=== PATIENT | female | born 1940 | race Caucasian/White ===

== ENCOUNTER 2019-08-19 21:30 | Observation (INO) | payer MEDICARE, BC, SELFPAY ==
[2019-08-19] VITALS (11 sets, daily range): BP systolic 95–168; BP diastolic 47–86; PULSE 85–89; RESP 13–24; TEMP 36.6; O2SAT 92–98
--- NOTE | 2019-08-19 21:35 | ED.OVERDOSE ---
HPI - Overdose General Chief Complaint: Overdose Stated Complaint: accidental OD Time Seen by Provider: 08/19/19 21:35 Source: family (spouse), EMS and RN notes reviewed Mode of arrival: EMS Limitations: clinical condition History of Present Illness HPI Narrative: Pt is an 79 y/o female who presents to the ED, via EMS, with c/o an overdose which occurred prior to arrival. EMS reports the pt lives at home with her , but she takes her medication of her own. The reports the pt has overdosed on her medication in the past accidentally. However, he is unaware of how much the pt has overdosed. EMS reports the pt was in her motorized chair when she fell to the ground. The pt called EMS. Upon arrival, EMS administered Narcan to the pt which helped the pt become more alert and oriented. However, the pt seems drowsy in the ED bed currently. The pt seemed to have overdosed on Oxycontin medication. The pt denies any chest pain or chest pressure currently in the ED bed. A complete HPI is limited due to the pt's clinical condition. MD complaint: accidental overdose Onset (ago): unknown Intent: other (unintentional) How Overdose Was Discovered: other ( saw pt not at baseline) Context: Accidental Overdose: medication error Associated symptoms: other (none) Related Data Home Medications Medication Instructions Recorded Confirmed diclofenac sodium 2 g TOPICAL QID PRN 06/21/19 08/20/19 estradiol 1 mg PO DAILY 06/21/19 08/20/19 fluoxetine 20 mg PO BID 06/21/19 08/20/19 ibuprofen 800 mg PO TID PRN 06/21/19 08/20/19 leflunomide 20 mg PO DAILY 06/21/19 08/20/19 pantoprazole 20 mg PO QAM 06/21/19 08/20/19 quetiapine 400 mg PO HS 06/21/19 08/20/19 ropinirole 1 mg PO HS 06/21/19 08/20/19 trazodone 100 mg PO HS 06/21/19 08/20/19 albuterol sulfate [Ventolin HFA] 2 puff INHALATION Q4H PRN 08/20/19 08/20/19 furosemide 20 mg PO DAILY 08/20/19 08/20/19 lorazepam 1 mg PO TID PRN 08/20/19 08/20/19 nystatin 1 ml PO QID 08/20/19 08/20/19 prednisone 10 mg PO BID 08/20/19 08/20/19 ramelteon 8 mg PO HS 08/20/19 08/20/19 rivastigmine tartrate 3 mg PO QID 08/20/19 08/20/19 tizanidine 4 mg PO Q8H PRN 08/20/19 08/20/19 zolpidem 5 mg PO QPM 08/20/19 08/20/19 Allergies Allergy/AdvReac Type Severity Reaction Status Date / Time vancomycin Allergy Unknown Unknown Verified 08/01/19 16:48 adhesive tape Allergy Rash Verified 06/21/19 16:18 Review of Systems Review of Systems: Narrative: A complete ROS is limited due to the pt's clinical condition. All systems reviewed & are unremarkable except as noted in HPI and below Constitutional: Constitutional: Reports other (overdose) Cardiovascular: Cardiovascular: Denies chest pain and Denies other (chest pressure) [facility] Past Medical History Medical History Anemia of chronic disease Anxiety Chronic narcotic dependence Chronic pain syndrome COPD (chronic obstructive pulmonary disease) Depression Left elbow fracture with orif 2018 MCL deficiency, knee Rheumatoid arthritis Uterine cancer Surgical History Surgical History H/O rotator cuff surgery rt H/O: hysterectomy History of back surgery History of colon surgery Family History Family History Father Cancer Lung cancer Sibling Cancer Lung cancer Neurofibromatosis Mother Arthritis Parkinsons Aneurysm Brain aneurysm Social History Social History Social History: Patient lives at home with her . She does have 1 son and 1 daughter. She is a full code. She reports her is her POA. She does not currently smoke. No alcohol use. Smoking packs per day: 0.5 Smoking cigarettes per day: 10.0 Years smoked: 60 Smoking pack-years: 30.00 Smoking status: Former smok
--- NOTE | 2019-08-19 21:46 | ECG_ITS ---
Measurements Intervals [place] Rate: 83 P: 7 TN: 139 QRS: 31 QRSD: 138 T: 36 QT: 409 QTc: 481 Interpretive Statements SINUS RHYTHM FREQUENT ATRIAL PREMATURE COMPLEXES RIGHT BUNDLE BRANCH BLOCK BASELINE ARTIFACT- I, II, III, AVL, AVF ABNORMAL ECG Electronically Signed On 08-20-2019 6:55:52 [employer] by Christian Castro D.O.
[2019-08-19] MEDS: NALOXONE HCL 0.4 MG/ML VIAL IV PUSH (21:59)
[2019-08-19 22:37] LABS: Basophils Absolute Auto 0.1 K/mm3 (0.0-0.1); Basophils Percent Auto 0.8 % (0.2-1.2); Eosinophils Absolute Auto 0.3 K/mm3 (0-0.3); Eosinophils Percent Auto 2.9 % (0-4.4); Hematocrit 33.2 % (37.0-47.0); Hemoglobin 10.6 g/dL (12.0-15.0); Immature Granulocyte Absolute 0.12 K/mm3 (0.00-0.031); Lymphocytes Absolute Auto 1.77 K/mm3 (0.9-3.2); Lymphocytes Percent Auto 15.4 % (18.3-44.2); Mean Corpuscular HGB Conc 31.9 g/dl (32-36); Mean Corpuscular Volume 94.1 fl (80-100); Mean Platelet Volume 12.9 fl (7.4-10.4); Monocytes Percent Auto 8.3 % (2.6-8.5); Neutrophils Absolute Auto 8.2 K/mm3 (1.3-6.7); Neutrophils Percent Auto 71.6 % (45.5-73.1); Platelet Count Result 200 k/mm3 (150-375); Red Blood Count 3.53 M/mm3 (4.2-5.4); Red Cell Distribution Width 17.6 % (11.5-14.5); White Blood Count 11.5 K/mm3 (4.5-10.0)
[2019-08-19 22:47] LABS: Add Urine Microscopic? NO; Appearance Urine Clear (Clear); Bilirubin Urine Negative (Negative); Blood Urine Negative (Negative); Color Urine Yellow (Yellow); Glucose Urine UA Negative (Negative); Ketones Urine Negative (Negative); Leukocyte Esterase Ur Negative LEU/UL (Negative); Nitrate Urine Negative (Negative); Protein Urine Negative (Negative); Specific Grav Ur 1.017 (1.001-1.035); Urobilinogen Urine Negative mg/dL (<2.0)
[2019-08-19 22:49] LABS: Alanine Aminotransferase 11 U/L (4-35); Albumin Level 4.1 g/dL (3.5-5.1); Alkaline Phosphatase 90 U/L (38-126); Aspartate Amino Transferase 16 U/L (14-36); Bilirubin,Total 0.2 mg/dL (0.2-1.3); Blood Urea Nitrogen 16 mg/dL (7-17); Calcium 9.5 mg/dL (8.4-10.2); Carbon Dioxide 23 mmol/L (22-30); Chloride 103 mmol/L (98-107); Estimated Glomerular Filt Rate > 60; Glucose 106 mg/dL (65-105); Potassium 3.5 mmol/L (3.4-5.0); Sodium 138 mmol/L (137-145)
[2019-08-19 22:51] LABS: Acetaminophen < 10 ug/mL (10-30); Ethanol < 10 mg/dL (<10); Salicylate < 1.0 mg/dL (2-20)
[2019-08-20] VITALS (23 sets, daily range): BP systolic 86–164; BP diastolic 44–77; PULSE 64–84; RESP 10–23; TEMP 36.4–37.1; O2SAT 92–99; BMI 25.9
[2019-08-20 00:03] LABS: Amphetamine Screen Urine Negative (Negative); Barbiturate Screen Urine Negative (Negative); Benzodiazepines Screen Urine Negative (Negative); Cannabinoid Screen Urine Negative (Negative); Cocaine Screen Urine Negative (Negative); Methadone Screen Urine Negative (Negative); Opiate Screen Urine Positive (Negative); Phencyclidine Screen Urine Negative (Negative)
--- NOTE | 2019-08-20 00:06 | PC.NURSE ---
At 0006 this nurse called Poison Control at and spoke with LEI Pulido and informed her of the medications the patient ingested. Tess stated to give IV fluids and monitor patient closely. Tess stated to not give Rumazicon but may give some narcan. This nurse informed EDP. IV fluids started on patient.
[2019-08-20] MEDS: SODIUM CHLORIDE 0.9% IV 1,000 ML 999 ML IV CONT ×2 (00:18→02:00)
[2019-08-20 01:00] LABS: Alveolar/Arterial O2 Gradient 19.8 mmHg; Carboxyhemoglobin 1.9 % THb (0-2.0); Device ROOM AIR; Fractional Inspired Oxygen 21 %; HCO3 ABG 25.9 mEq/l (22.0-26.0); Methemoglobin ABG 0.3 %THb (0-1.5); Modified Allen's Test Pass; Oxygen Content ABG 10.9 %vol (16.0-22.0); Oxygen Saturation ABG 93.6 % (95.0-100.0); Oxyhemoglobin 89.1 % THb (90.0-100.0); PCO2 ABG 48.3 mmHg (35.0-45.0); PO2 ABG 72.1 mmHg (80.0-100.0); PO2 FiO2 Ratio Arterial Blood 3.43 %; Reduced Hemoglobin 8.7 %THb (0-5.0); Site Drawn LEFT RADIAL; Total Hemoglobin 8.6 g/dL (12.0-18.0); pH ABG 7.347 (7.350-7.450)
--- NOTE | 2019-08-20 03:16 | ADMGEN ---
This patient, Jessica Zamudio, was admitted to Intensive Care Unit-5. Patient/family oriented to hospital policies and general routines including ID bracelet, bed and alarms, visiting hours, pain management, procedures, bathroom and other care routines, personal items, smoking policy, room service/diet, and visiting hours. Valuables list has been completed. Information on how to activate the Rapid Response Team has been discussed. Patient/Family are encouraged to report perceived risks to care and to ask questions if they do not understand what they are told or what they should do.
[2019-08-20] MEDS: SODIUM CHLORIDE 0.9% IV 1,000 ML 125 ML IV CONT ×3 (04:01→20:56)
--- NOTE | 2019-08-20 08:20 | PM.IMHP ---
H&P: HPI History of Present Illness Chief complaint: ACCIDENTAL DRUG OVERDOSE CELLULITIS Narrative: Date and Time of Service of History & Physical: August 20, 2019 at 7:50 a.m.. Date and Time of Placement in Observation Order: August 20, 2019 at 1:37 a.m.. Chief Complaint: Accidental overdose of OxyContin. History of Present Illness: Jessica Zaumdio is a 79 year old female with known rheumatoid arthritis and osteoarthritis regularly taking OxyContin for pain who presented to the emergency room via EMS due to overdose of OxyContin. Patient states she took extra OxyContin due to pain. She notes she ?Peed all over myself?. Patient unable to give additional information but per information given in ER, patient was noted to be her motorized chair when she fell to the ground. Patient called EMS. Upon arrival, EMS administered Narcan which held patient become more alert and oriented. Patient was still drowsy in the emergency department. Per ER note, family was able to determine patient took a double dose of her nighttime medications which would amount to a total of 10 mg of Ambien, ropinirole 2 mg, trazodone 200 mg, quetiapine 800 mg, hydrocodone 20 mg/650 mg, Ativan 1 mg and OxyContin 80 mg. She denies any suicidal intent. She does have pain in her knees. No chest pain. No shortness of breath. No headache. No dizziness. No vision changes. No urinary symptoms. Given her overdose, patient was placed in observation for further evaluation and treatment. Review of Systems Review of Systems: All systems reviewed & are unremarkable except as noted in HPI and below Constitutional: Constitutional: Denies chills, Reports fatigue and Denies fever(s) Eyes: Eyes: Denies blurry vision and Denies diplopia ENT: Denies nasal congestion, Denies nasal discharge and Denies sore throat Cardiovascular: Cardiovascular: Denies chest pain, Denies lightheadedness and Denies palpitations Respiratory: Respiratory: Denies cough and Denies dyspnea Gastrointestinal: Gastrointestinal: Denies abdominal pain, Denies constipation, Denies diarrhea, Denies nausea and Denies vomiting Genitourinary: Genitourinary: Denies nocturia and Denies dysuria Musculoskeletal: Musculoskeletal: Reports arthralgias (knees) Integumentary/Breasts: Skin/Breast: Denies rash Neurologic: Denies vertigo and Denies headache(s) Psychiatric: Psychiatric: Denies anxiety, Denies confusion and Denies depression Endocrine: Endocrine: Reports no additional endocrine complaints Hematologic/Lymphatic: Hematologic/Lymphatic: Reports no additional hematologic/lymphatic complaints Allergic/Immunologic: Allergic/Immunologic: Reports no additional allergic/immunologic complaints [facility] Past Medical History Medical History Anemia of chronic disease Anxiety Chronic narcotic dependence Chronic pain syndrome COPD (chronic obstructive pulmonary disease) Depression Left elbow fracture with orif 2018 MCL deficiency, knee Rheumatoid arthritis Uterine cancer Surgical History Surgical History H/O rotator cuff surgery rt H/O: hysterectomy History of back surgery History of colon surgery Family History Family History Father Cancer Lung cancer Sibling Cancer Lung cancer Neurofibromatosis Mother Arthritis Parkinsons Aneurysm Brain aneurysm Social History Social History Social History: Patient lives at home with her . She does have 1 son and 1 daughter. She is a full code. She reports her is her POA. She does not currently smoke. No alcohol use. Smoking packs per day: 0.5 Smoking cigarettes per day: 10.0 Years smoked: 60 Smoking pack-years: 30.00 Smoking status: Former smoker Tobacco
[2019-08-20] MEDS: predniSONE 10 MG TABLET PO ×2 (12:28→16:37)
[2019-08-20] MEDS: LEFLUNOMIDE 20 MG TABLET PO (12:28)
[2019-08-20] MEDS: estradioL 1 MG TABLET PO (12:28)
[2019-08-20] MEDS: BACLOFEN 5 MG TABLET PO ×2 (12:28→16:37)
[2019-08-20] MEDS: FLUOXETINE HCL 20 MG CAP PO ×2 (12:28→16:37)
[2019-08-20] MEDS: FUROSEMIDE 20 MG TABLET PO (12:29)
[2019-08-20] MEDS: NYSTATIN 100,000 UNITS/ML SUSP 5 ML ORAL.SUSP PO ×3 (16:33→20:58)
[2019-08-20] MEDS: PANTOPRAZOLE SOD SESQUIHYDRATE 20 MG TAB PO (16:33)
[2019-08-20] MEDS: ALBUTEROL SULFATE (*SP) AEROSOL 1 PUFF 2 PUFF INHALATION (21:05)
[2019-08-20] MEDS: TIZANIDINE HCL 4 MG TABLET PO (23:15)
[2019-08-21 04:00] VITALS: BP 119/62; PULSE 80; RESP 16; TEMP 36.9; O2SAT 95
[2019-08-21 04:40] LABS: Hemoglobin 10.2 g/dL (12.0-15.0); Immature Platelet Fraction Pct 10.5 % (0.9-11.2); Mean Corpuscular HGB Conc 32.9 g/dl (32-36); Mean Corpuscular Volume 91.2 fl (80-100); Mean Platelet Volume 13.4 fl (7.4-10.4); Platelet Count Result 176 k/mm3 (150-375); Red Cell Distribution Width 17.3 % (11.5-14.5); White Blood Count 7.7 K/mm3 (4.5-10.0)
[2019-08-21 04:52] LABS: Blood Urea Nitrogen 11 mg/dL (7-17); Calcium 8.7 mg/dL (8.4-10.2); Carbon Dioxide 28 mmol/L (22-30); Chloride 100 mmol/L (98-107); Estimated CRCL calculation 54 ml/min; Estimated Glomerular Filt Rate > 60; Glucose 107 mg/dL (65-105); Potassium 2.9 mmol/L (3.4-5.0); Sodium 135 mmol/L (137-145)
[2019-08-21 08:00] VITALS: BP 164/77; PULSE 72; RESP 23; O2SAT 99
[2019-08-21] MEDS: estradioL 1 MG TABLET PO (09:57)
[2019-08-21] MEDS: BACLOFEN 5 MG TABLET PO ×2 (09:57→16:02)
[2019-08-21] MEDS: POTASSIUM CHLORIDE 20 MEQ TABLET 40 MEQ PO ×2 (09:57→18:20)
[2019-08-21] MEDS: predniSONE 10 MG TABLET PO ×2 (09:58→16:02)
[2019-08-21] MEDS: FLUOXETINE HCL 20 MG CAP PO ×2 (09:58→16:02)
[2019-08-21] MEDS: LEFLUNOMIDE 20 MG TABLET PO (09:58)
[2019-08-21] MEDS: FUROSEMIDE 20 MG TABLET PO (09:58)
[2019-08-21] MEDS: NYSTATIN 100,000 UNITS/ML SUSP 5 ML ORAL.SUSP PO ×3 (09:58→21:33)
--- NOTE | 2019-08-21 10:14 | PM.IMPN ---
Progress Note: A&P Assessment and Plan (1) Accidental overdose: Qualifiers: Encounter type: initial encounter Qualified Code(s): T50.901A - Poisoning by unspecified drugs, medicaments and biological substances, accidental (unintentional), initial encounter Code(s): T50.901A - Poisoning by unspecified drugs, medicaments and biological substances, accidental (unintentional), initial encounter Status: Acute Assessment and Plan: Patient has had accidental overdose in the past. Urine drug screen only positive for opiates. No suicidal ideation. Poison control was called from ER with recommendation to monitor. Doing better at this time. Patient had discussion with family and nursing yesterday regarding need for probable intermediate placement given her immobility and recurrent accidental overdoses. Patient is in agreement. Family has requested [facility]. Care coordination is aware. Patient generally not mobile at home with PT/OT not ordered as a result. Can order PT/OT if needed for intermediate placement. Anticipate patient should be ready to discharge as soon as placement secured. (2) Hypokalemia: Code(s): E87.6 - Hypokalemia Status: Acute Assessment and Plan: Potassium 2.9 this morning with oral replacement given. Will recheck level at noon. Patient reports has had problems with low potassium in the past. (3) Rheumatoid arthritis: Qualifiers: Rheumatoid arthritis location: multiple sites Rheumatoid factor presence: unspecified presence Qualified Code(s): M06.9 - Rheumatoid arthritis, unspecified Code(s): M06.9 - Rheumatoid arthritis, unspecified Status: Acute Assessment and Plan: Ongoing issue. Continue home leflunomide and prednisone. Did restart hydrocodone acetaminophen yesterday afternoon but at lower dose than home dose. Will continue to hold OxyContin for now. (4) Chronic pain syndrome: Code(s): G89.4 - Chronic pain syndrome Status: Acute Assessment and Plan: On multiple medications. Result of rheumatoid and osteoarthritis. Continue home baclofen and prednisone. Hydrocodone acetaminophen at lower dose as noted above. Continue to hold OxyContin. (5) Depression: Qualifiers: Depression Type: unspecified Qualified Code(s): F32.9 - Major depressive disorder, single episode, unspecified Code(s): F32.9 - Major depressive disorder, single episode, unspecified Status: Acute Assessment and Plan: Mood is stable. No suicidal thoughts. Continue home fluoxetine. Home quetiapine remains on hold as well as trazodone, Ambien and rozerem. Will monitor. (6) Anxiety: Code(s): F41.9 - Anxiety disorder, unspecified Status: Acute Assessment and Plan: Mood stable. Home Ativan remains on hold. (7) Anemia of chronic disease: Code(s): D63.8 - Anemia in other chronic diseases classified elsewhere Status: Acute Assessment and Plan: H&H 10.2 and 31.0 today and stable. Within her baseline. Continue to monitor. (8) DVT prophylaxis: Code(s): Z29.9 - Encounter for prophylactic measures, unspecified Status: Acute Assessment and Plan: SCDs. Time Spent With Patient Time with patient: 15 - 25 minutes Subjective Date/time seen: 08/21/19 10:14 Interval history: Date of Service: 08/21/2019. Admitted with accidental overdose of OxyContin, hydrocodone acetaminophen, Ambien, ropinirole, trazodone, quetiapine and Ativan. Feels better today. No headache or dizziness. No chest pain. No shortness of breath. No abdominal pain. Does still have joint pain particularly right knee but has known rheumatoid arthritis. Review of Systems Review of Systems: Narrative: Feeling better today. Constitutional: Constitutional: Denies chills, Denies fatigue and Denies fever(s) ENT: Denies nasal congestion and Denies nasal discharge Cardiovascula
[2019-08-21 12:06] LABS: Magnesium 1.7 mg/dL (1.6-2.3)
[2019-08-21] MEDS: RIVASTIGMINE TARTRATE 1.5 MG CAPSULE 3 MG PO ×2 (16:01→21:32)
[2019-08-21] MEDS: TIZANIDINE HCL 4 MG TABLET PO (21:33)
[2019-08-21 22:00] VITALS: BP 129/76; PULSE 77; RESP 18; TEMP 36.7; O2SAT 97
[2019-08-22] MEDS: ACETAMINOPHEN 325 MG TABLET 650 MG PO (04:47)
[2019-08-22 06:13] VITALS: BP 145/75; PULSE 76; RESP 18; TEMP 36.9; O2SAT 97
[2019-08-22 06:34] LABS: Blood Urea Nitrogen 13 mg/dL (7-17); Calcium 9.1 mg/dL (8.4-10.2); Carbon Dioxide 22 mmol/L (22-30); Chloride 104 mmol/L (98-107); Estimated CRCL calculation 77 ml/min; Estimated Glomerular Filt Rate > 60; Glucose 104 mg/dL (65-105); Magnesium 1.9 mg/dL (1.6-2.3); Potassium 3.4 mmol/L (3.4-5.0); Sodium 135 mmol/L (137-145)
[2019-08-22] MEDS: BACLOFEN 5 MG TABLET PO ×2 (09:34→15:01)
[2019-08-22] MEDS: predniSONE 10 MG TABLET PO (09:35)
[2019-08-22] MEDS: PANTOPRAZOLE SOD SESQUIHYDRATE 20 MG TAB PO (09:35)
[2019-08-22] MEDS: RIVASTIGMINE TARTRATE 1.5 MG CAPSULE 3 MG PO (09:35)
[2019-08-22] MEDS: NYSTATIN 100,000 UNITS/ML SUSP 5 ML ORAL.SUSP PO ×2 (09:36→15:02)
[2019-08-22] MEDS: estradioL 1 MG TABLET PO (09:36)
[2019-08-22] MEDS: FLUOXETINE HCL 20 MG CAP PO (09:36)
[2019-08-22] MEDS: LEFLUNOMIDE 20 MG TABLET PO (09:36)
--- NOTE | 2019-08-22 10:25 | PM.IMPN ---
Progress Note: A&P Assessment and Plan (1) Accidental overdose: Qualifiers: Encounter type: initial encounter Qualified Code(s): T50.901A - Poisoning by unspecified drugs, medicaments and biological substances, accidental (unintentional), initial encounter Code(s): T50.901A - Poisoning by unspecified drugs, medicaments and biological substances, accidental (unintentional), initial encounter Status: Acute Assessment and Plan: Patient has had accidental overdose in the past. Urine drug screen only positive for opiates. No suicidal ideation. Poison control was called from ER with recommendation to monitor. Has done well with no continuing issues. Patient has been accepted at [facility]. Patient is medically stable. Will discharge there today. (2) Hypokalemia: Code(s): E87.6 - Hypokalemia Status: Acute Assessment and Plan: Potassium 3.4 today. Patient reports was not taking furosemide at home until discontinued. However, has had ongoing issues with low potassium and will continue replacement. Will need to be checked at the nursing facility. (3) Rheumatoid arthritis: Qualifiers: Rheumatoid arthritis location: multiple sites Rheumatoid factor presence: unspecified presence Qualified Code(s): M06.9 - Rheumatoid arthritis, unspecified Code(s): M06.9 - Rheumatoid arthritis, unspecified Status: Acute Assessment and Plan: Ongoing issue. Continue home leflunomide and prednisone. Will continue current hydrocodone acetaminophen. Will not restart OxyContin. Will need to be followed at nursing facility. (4) Chronic pain syndrome: Code(s): G89.4 - Chronic pain syndrome Status: Acute Assessment and Plan: On multiple medications. Result of rheumatoid and osteoarthritis. Continue home baclofen and prednisone. Continue hydrocodone acetaminophen. Continue to hold OxyContin. (5) Depression: Qualifiers: Depression Type: unspecified Qualified Code(s): F32.9 - Major depressive disorder, single episode, unspecified Code(s): F32.9 - Major depressive disorder, single episode, unspecified Status: Acute Assessment and Plan: Mood remains stable. No suicidal thoughts. Continue home fluoxetine. Will resume home quetiapine and trazodone as she was having difficulty sleeping. Continue to hold Ambien and resume. Will need to be monitored at nursing facility. (6) Anxiety: Code(s): F41.9 - Anxiety disorder, unspecified Status: Acute Assessment and Plan: Mood stable. Continue to hold Ativan at this time. (7) Anemia of chronic disease: Code(s): D63.8 - Anemia in other chronic diseases classified elsewhere Status: Acute Assessment and Plan: H&H 10.2 and 31.0 on 08/21/2019 and stable. Within her baseline. (8) DVT prophylaxis: Code(s): Z29.9 - Encounter for prophylactic measures, unspecified Status: Acute Assessment and Plan: SCDs. Time Spent With Patient Time with patient: 15 - 25 minutes Subjective Date/time seen: 08/22/19 10:25 Interval history: Date of Service: 08/22/2019. Admitted with accidental overdose of OxyContin, hydrocodone acetaminophen, Ambien, ropinirole, trazodone, quetiapine and Ativan. Complains of pain in her knees from her rheumatoid arthritis. No headache or dizziness. No chest pain. No shortness of breath. No abdominal pain. Did not sleep well last night. Review of Systems Constitutional: Constitutional: Denies chills and Denies fever(s) ENT: Denies nasal congestion and Denies nasal discharge Cardiovascular: Cardiovascular: Denies chest pain Respiratory: Respiratory: Denies dyspnea Gastrointestinal: Gastrointestinal: Denies abdominal pain, Denies nausea and Denies vomiting Genitourinary: Genitourinary: Reports no additional female genitourinary complaints Musculoskeletal: Musculoskeletal: Repo
[2019-08-22 14:00] VITALS: BP 167/86; PULSE 84; RESP 16; TEMP 37.7; O2SAT 97
[2019-08-22] MEDS: POTASSIUM CHLORIDE 20 MEQ TABLET.ER 40 MEQ PO (15:01)
--- NOTE | 2019-08-22 18:25 | PM.DS ---
DS: Diagnosis Admitting Diagnosis Admitting Diagnosis: Poisoning by unspecified drugs, medicaments and biological substances, accidental (unintentional), initial encounter Discharge Diagnosis (1) Accidental overdose: Qualifiers: Encounter type: initial encounter Qualified Code(s): T50.901A - Poisoning by unspecified drugs, medicaments and biological substances, accidental (unintentional), initial encounter Code(s): T50.901A - Poisoning by unspecified drugs, medicaments and biological substances, accidental (unintentional), initial encounter Status: Acute (2) Hypokalemia: Code(s): E87.6 - Hypokalemia Status: Acute (3) Rheumatoid arthritis: Qualifiers: Rheumatoid arthritis location: multiple sites Rheumatoid factor presence: unspecified presence Qualified Code(s): M06.9 - Rheumatoid arthritis, unspecified Code(s): M06.9 - Rheumatoid arthritis, unspecified Status: Acute (4) Chronic pain syndrome: Code(s): G89.4 - Chronic pain syndrome Status: Acute Assessment and Plan: (5) Depression: Qualifiers: Depression Type: unspecified Qualified Code(s): F32.9 - Major depressive disorder, single episode, unspecified Code(s): F32.9 - Major depressive disorder, single episode, unspecified Status: Acute (6) Anxiety: Code(s): F41.9 - Anxiety disorder, unspecified Status: Acute (7) Anemia of chronic disease: Code(s): D63.8 - Anemia in other chronic diseases classified elsewhere Status: Acute DS: Summary Hospital Course Reason for hospitalization: Accidental overdose of OxyContin. Hospital Course: Date of Service of Discharge: August 22, 2019. History of Present Illness: Patient is an 79-year-old with known rheumatoid arthritis and osteoarthritis regularly taking OxyContin for pain as well as other medications presented to the emergency room by EMS due to overdose of medication. Patient freely admits she did take extra OxyContin due to her pain. Per ER record, family was able to determine patient took a double dose of her nighttime medications including Ambien, ropinirole, trazodone, quetiapine, hydrocodone acetaminophen, Ativan and OxyContin. Patient does remember she ?Peed all over myself?. She denies having chest pain or shortness of breath. No headache or dizziness. No vision changes. Patient has had problem with overdose of medication in the past. In the emergency room, findings were consistent with overdose. As a result, she was placed in observation for further evaluation and treatment. Course in Hospital: Patient was placed in the ICU. Poison control was called from the emergency room with recommendation for monitoring. Patient was already much more awake and alert all of her problem medications held. No abnormalities were seen on telemetry. Urine toxicology screen had been positive for opiates. No suicidal ideation. With patient already significantly improved, she was able to transfer from ICU to the medical floor on 08/20/2019. She remained on the medical floor for the duration of her stay. Patient continued to improve. She was allowed a lower dose of hydrocodone acetaminophen after more awake as she was having pain from her rheumatoid arthritis. It was stressed with the patient need to avoid escalating medication as she has had previous problems with overdosing accidentally. Discussion was held with patient regarding need for better monitoring when ready for discharge. After discussion with providers and family, patient was agreeable to jail placement. Family did wish for her to go to [facility] as they had already been researching this. Patient was accepted to [facility] but unable to be accepted until 08/22/2019. She was noted to have potassium of 2.9 on the morning of 08/21/2019 with oral replacement given and improvement in potassium level. Sc
== END 2019-08-22 16:20 ==
LOC: ANHED 08-20 00:42 → ANHICU 08-20 01:54 → ANH3MEDSUR 08-22 10:40 → ANHICU 08-23 10:29
PROVIDERS: Admitting Provider Internal Medicine; Emergency Provider Emergency Medicine; PCP Family Medicine; Visit Provider Hospitalist
DX: T40.2X1A Poisoning by other opioids, accidental (unintentional), initial encounter (principal); E87.6 Hypokalemia; M06.89 Other specified rheumatoid arthritis, multiple sites; M19.90 Unspecified osteoarthritis, unspecified site; G89.4 Chronic pain syndrome; F32.9 Major depressive disorder, single episode, unspecified; F41.9 Anxiety disorder, unspecified; D63.8 Anemia in other chronic diseases classified elsewhere; J44.9 Chronic obstructive pulmonary disease, unspecified; Z79.891 Long term (current) use of opiate analgesic; Z79.899 Other long term (current) drug therapy; Z87.891 Personal history of nicotine dependence; Z85.42 Personal history of malignant neoplasm of other parts of uterus
CPT/HCPCS: 36415; 36600; 51701; 80048; 80053; 80307; 81003; 82375; 82805; 83050; 83735; 84132; 84443; 85025; 85027; 85055; 87081; 93005; 94640; 96361; 96365; 96375; 99285; A9270; G0378; J0690; J2310; J7030; J7512